=== PATIENT | male | born 1990 | race Caucasian/White ===

== ENCOUNTER → 2017-03-20 10:33 | Emergency (ER) | payer BC ==
[~2017-03-20 10:33] MED LIST: Aspirin Low Dose CHEW TAB* 81 MG PO ONE
[2017-03-20 11:02] LABS: Hematocrit 45 % (42-52); Hemoglobin 15.4 g/dl (14.0-18.0); Mean Corpuscular HGB Conc 34 g/dl (31-36); Mean Corpuscular Hemoglobin 31 pg (27-31); Mean Corpuscular Volume 91 fL (80-94); Mean Platelet Volume 8 um3 (7.4-10.4); Red Blood Count 4.92 10^6/ul (4.0-5.4); Red Cell Distribution Width 13 % (10.5-15); White Blood Count 10.4 10^3/ul (3.5-10.8)
--- NOTE | 2017-03-20 11:14 | RAD ---
HISTORY: Chest pain COMPARISONS: None VIEWS:1: Single frontal portable view of the chest at 11:05 AM FINDINGS: LINES AND TUBES: None. CARDIOMEDIASTINAL SILHOUETTE: The cardiomediastinal silhouette is normal for portable technique. PLEURA: The costophrenic angles are sharp. No pleural abnormalities are noted. LUNG PARENCHYMA: The lungs are clear. ABDOMEN: The upper abdomen is clear. There is no subphrenic gas. BONES AND SOFT TISSUES: No bone or soft tissue abnormalities are noted. IMPRESSION: NO ACTIVE CARDIOPULMONARY DISEASE.
[2017-03-20 11:42] LABS: Benzodiazepine Urine Screen None Detected (None Detect)
[2017-03-20 12:38] LABS: Albumin 4.4 g/dL (3.2-5.2); BUN/Creatinine Ratio 13.3 (8-20); Calcium 9.4 mg/dL (8.6-10.3); EGFR African American 131.2 (>60); Globulin 2.5 g/dL (2-4); Potassium 4.3 mmol/L (3.5-5.0); Total Bilirubin 0.8 mg/dL (0.2-1.0); Total Protein 6.9 g/dL (6.4-8.9)
[2017-03-20 12:39] LABS: Troponin I 0.01 ng/mL (<0.04)
[2017-03-20 15:39] VITALS: BP 122/73
--- NOTE | 2017-04-02 15:14 | ED ---
Julius Hill Benjamin, scribed for Kamar Nichole MD on 03/20/17 at 1108 . HPI Chest Pain - HPI Summary HPI Summary: 26yo male c/o sudden onset chest pain that started this morning around 9am. Pt describes feeling heaviness in his left anterior chest that lasted about an hour. Pt was just walking around his house at the time of onset. Pt reports having previous CP every once in a while but never this bad. Associated symptoms include SOB, lightheadedness, and pt also felt like passing out. Denies cough and has not been on a long trip recently. Negative FHx of CAD and DM. Pt is a smoker. Pt experienced a family recently but denies any anxiety or stress. - History of Current Complaint Chief Complaint: EDChestPainROMI Time Seen by Provider: 03/20/17 10:44 Hx Obtained From: Patient, Family/Test Engineering Intern - Onset/Duration: Still Present Time of Onset: 09:00 Timing: Constant, Lasting Hours - 1 hr Initial Severity: Moderate Current Severity: Mild Pain Intensity: 2 Pain Scale Used: 0-10 Numeric Chest Pain Location: Left Anterior Chest Pain Radiates: No Character: Heaviness Aggravating Factor(s): Nothing Alleviating Factor(s): Nothing Associated Signs and Symptoms: Positive: Chest Pain, Shortness of Breath, Syncope - near, Lightheadedness. Negative: Anxiety, Recent Stress, Cough, Productive Cough, Nonproductive Cough - Allergy/Home Medications Allergies/Adverse Reactions: Allergies Allergy/AdvReac Type Severity Reaction Status Date / Time No Known Allergies Allergy Verified 03/20/17 10:45 PMH/Surg Hx/FS Hx/Imm Hx Cardiovascular History: Denies: Hx Myocardial Infarction Infectious Disease History: No Infectious Disease History: Denies: Traveled Outside the [place] in Last 30 Days - Family History Known Family History: Negative: Cardiac Disease, Hypertension - Social History Occupation: Employed Full-time Lives: With Family Alcohol Use: None Substance Use Type: Reports: Marijuana Smoking Status (MU): Current Every Day Smoker Review of Systems Negative: Fever, Chills Negative: Erythema Negative: Sore Throat Positive: Chest Pain - L anterior Positive: Shortness Of Breath. Negative: Cough Negative: Abdominal Pain, Vomiting, Nausea Negative: dysuria, hematuria Negative: Edema Negative: Rash Neurological: Other - lightheadedness Positive: Syncope - near Psychological: Normal Negative: Anxious All Other Systems Reviewed And Are Negative: Yes Physical Exam Triage Information Reviewed: Yes Vital Signs On Initial Exam: Initial Vitals Temp Pulse Resp BP 97.6 F 67 20 123/77 03/20/17 10:34 03/20/17 10:34 03/20/17 10:34 03/20/17 10:34 Vital Signs Reviewed: Yes Appearance: Positive: Well-Appearing, Well-Nourished, Pain Distress - mild Skin: Positive: Warm, Skin Color Reflects Adequate Perfusion Head/Face: Positive: Normal Head/Face Inspection Eyes: Positive: Conjunctiva Clear ENT: Positive: Normal ENT inspection Neck: Positive: Supple, Nontender, Other: - (-) JVD, (-) Stridor, (-) Tracheal deviation Respiratory/Lung Sounds: Positive: Clear to Auscultation, Breath Sounds Present. Negative: Rales, Rhonchi, Wheezes Cardiovascular: Positive: RRR, Pulses are Symmetrical in both Upper and Lower Extremities. Negative: Murmur Abdomen Description: Positive: Nontender, Soft, Other: - negative - rebound. Negative: Distended, Guarding Musculoskeletal: Negative: Edema Left, Edema Right Neurological: Positive: Sensory/Motor Intact, Alert, Oriented to Person Place, Time Psychiatric: Positive: Affect/Mood Appropriate Diagnostics - Vital Signs Vital Signs Temp Pulse Resp BP Pulse Ox 03/20/17 10:41 98.7 F 66 16 145/83 96 03/20/17 10:34 97.6 F 67 20 123/77 - Laboratory Result Diagrams: 03/20/17 10:50 03/20/17 10:50 Lab Statement: Any lab studies that have been ordered have been reviewed, and results considered in the medical decision making process. - Radiology CXR Xray Interpretation: No Acute Changes Radiology Interpretation Completed By: Radiologist - EKG 1040. Cardiac Rate: NL - 67bpm EKG Rhythm: Sinus Rhythm EKG Interpretation: No STEMI, mild ST elevation in inferior leads 1358. Cardiac Rate: NL - 64bpm EKG Rhythm: Sinus Rhythm EKG Comparison: No Significant Change - unchanged from EKG taken at PCP's office at 11/27/16. Re-Evaluation - Re-Evaluation First Eval Re-Evaluation Time: 13:10 Change: Unchanged - still chest pain free. Second Eval Re-Evaluation Time: 15:02 Change: Unchanged - still chest pain free. Chest Pain Course/Dx - Course Course Of Treatment: Reviewed pts medication and allergy lists. - Diagnoses Provider Diagnoses: Chest pain Discharge - Discharge Plan Condition: Stable Disposition: HOME Patient Education Materials: Chest Pain (ED) Referrals: Session Albin ALVAREZ [Primary Care Provider] - Barrie Welsh MD [Medical Doctor] - 2 Days Additional Instructions: RETURN TO THE EMERGENCY DEPARTMENT FOR CHANGING OR WORSENING SYMPTOMS. The documentation as recorded by the Julius ramon Benjamin accurately reflects the service I personally performed and the decisions made by Dionisio holguin Jerry, MD.
== END | disposition home or self-care (01) ==
LOC: ED 10:33
DX: R07.9 Chest pain, unspecified (principal); R06.02 Shortness of breath; R55 Syncope and collapse; R42 Dizziness and giddiness; F17.210 Nicotine dependence, cigarettes, uncomplicated
CPT/HCPCS: 36415; 71010; 80053; 80307; 83605; 84484; 85025; 93005; 99282; A9270-GY

== ENCOUNTER 2017-09-08 16:08 | Emergency (ER) | payer BC ==
[2017-09-08] MEDS ORDERED: Ondansetron INJ* 2 MG/ML VIAL IV ONE (17:57)
[2017-09-08] MEDS ORDERED: Ketorolac INJ* 30 MG/ML 1 ML VIAL IV PUSH ONE (17:57)
[2017-09-08] MEDS: NS 0.9% 1000 ML* 2,000 ML IV ONE (18:11)
[2017-09-08 18:31] LABS: ABS Basophils 0 10^3/ul (0-0.2); ABS Eosinophils 0.1 10^3/ul (0-0.6); ABS Lymphocytes 0.5 10^3/ul (1.0-4.8); ABS Monocytes 0.7 10^3/ul (0-0.8); ABS Neutrophils 4.4 10^3/ul (1.5-7.7); ABS Nucleated RBC 0 10^3/ul; Eosinophil % 0.9 % (0-6); Hematocrit 41 % (42-52); Hemoglobin 14.1 g/dl (14.0-18.0); Lymphocyte % 8.6 % (25-47); Mean Corpuscular HGB Conc 35 g/dl (31-36); Mean Corpuscular Hemoglobin 31 pg (27-31); Mean Corpuscular Volume 89 fL (80-94); Mean Platelet Volume 7 um3 (7.4-10.4); Nucleated Red Blood Cells % 0; Platelet Count 229 10^3/ul (150-450); Red Cell Distribution Width 13 % (10.5-15); White Blood Count 5.7 10^3/ul (3.5-10.8)
--- NOTE | 2017-09-08 18:32 | ED ---
HPI Febrile Illness - HPI Summary HPI Summary: 27-year-old male presents with fever since yesterday. He denies body aches, headache, congestion, and sore throat. She denies any neck stiffness. He denies any photophobia. He has history of migraines. He admits to nausea and vomiting. He admits to generalized abdominal pain. He admits to a dry cough. Admits to occasional shortness of breath. He denies any chest pain. He admits to generalized body aches. He hasn't taken anything for his pain. He states he cannot keep anything down. He was last night. He has no medical conditions. - History of Current Complaint Chief Complaint: EDFluSymptoms Time Seen by Provider: 09/08/17 17:45 Pain Intensity: 5 - Allergy/Home Medications Allergies/Adverse Reactions: Allergies Allergy/AdvReac Type Severity Reaction Status Date / Time No Known Allergies Allergy Verified 03/20/17 10:45 PMH/Surg Hx/FS Hx/Imm Hx Endocrine/Hematology History: Denies: Hx Anticoagulant Therapy Cardiovascular History: Denies: Hx Myocardial Infarction Respiratory History: Denies: Hx Asthma Infectious Disease History: No Infectious Disease History: Denies: Traveled Outside the [place] in Last 30 Days - Family History Known Family History: Negative: Cardiac Disease, Hypertension - Social History Alcohol Use: None Substance Use Type: Reports: None Smoking Status (MU): Never Smoked Tobacco Review of Systems Positive: Fever, Chills, Fatigue Negative: Chest Pain Positive: Shortness Of Breath, Cough Positive: Abdominal Pain, Vomiting, Nausea. Negative: Diarrhea All Other Systems Reviewed And Are Negative: Yes Physical Exam Triage Information Reviewed: Yes Vital Signs On Initial Exam: Initial Vitals Temp Pulse Resp BP Pulse Ox 99.6 F 110 20 120/83 97 09/08/17 16:20 09/08/17 16:20 09/08/17 16:20 09/08/17 16:20 09/08/17 16:20 Vital Signs Reviewed: Yes Appearance: Positive: Ill-Appearing - non toxic Skin: Positive: Warm, Dry Head/Face: Positive: Normal Head/Face Inspection Eyes: Positive: Normal, EOMI, BONNIE, Conjunctiva Clear ENT: Positive: Normal ENT inspection, Pharyngeal erythema, TMs normal, Uvula midline. Negative: Tonsillar swelling, Tonsillar exudate, Trismus, Muffled voice Respiratory/Lung Sounds: Positive: Clear to Auscultation, Breath Sounds Present Cardiovascular: Positive: Normal, RRR Abdomen Description: Positive: Nontender, Soft Bowel Sounds: Positive: Present Musculoskeletal: Positive: Normal Neurological: Positive: Normal Psychiatric: Positive: Normal Diagnostics - Vital Signs Vital Signs Temp Pulse Resp BP Pulse Ox 09/08/17 18:00 128/88 09/08/17 17:54 94 96 09/08/17 17:52 100.2 F 09/08/17 17:51 117/56 09/08/17 16:20 99.6 F 110 20 120/83 97 - Laboratory Result Diagrams: 09/08/17 18:15 09/08/17 18:15 Lab Statement: Any lab studies that have been ordered have been reviewed, and results considered in the medical decision making process. Re-Evaluation - Re-Evaluation First Eval Re-Evaluation Time: 19:34 Change: Improved Comment: still has a headache, so will give benadryl to complete migraine cocktail Course/Dx - Course Course Of Treatment: 27-year-old male presents with fever since yesterday. He denies body aches, headache, congestion, and sore throat. She denies any neck stiffness. He denies any photophobia. He has history of migraines. He admits to nausea and vomiting. He admits to a dry cough. Admits to occasional shortness of breath. He denies any chest pain. He admits to generalized body aches. He hasn't taken anything for his pain. He states he cannot keep anything down. He was last night. He has no medical conditions. On exam appears normal. Pharynx erythema but no tonsillar swelling or exudate. Uvula midline. Lungs clear to auscultation. Abdomen soft nontender. will treat presumpatively as flu with tamiflu. will give zofran for nausea. patient understand and agrees with plan. - Febrile Illness Differential Diagnoses: Pneumonia, Viremia, Other: - influenza - Diagnoses Provider Diagnoses: Febrile illness Discharge - Discharge Plan Condition: Good Disposition: HOME Prescriptions: Ondansetron ODT TAB* [Zofran 4 MG Odt TAB*] 4 mg PO Q6H PRN #20 tab.odt PRN Reason: Nausea Oseltamivir CAP* [Tamiflu CAP*] 75 mg PO BID #9 cap Patient Education Materials: Influenza (ED) Referrals: Session Albin ALVAREZ [Primary Care Provider] - Additional Instructions: Take Tamiflu twice for 5 days first dose given in ED Take Tylenol and ibuprofen for muscle aches and fever every 6 hours Use Zofran every 6 hours for nausea as needed Saline rinse can be used multiple times a day for nasal congestion Use humidifier in room or place bowls of warm water around room for cough Try to drink fluids every hour and eat a small snack every 3 hours Return to ED if develop any new or worsening symptoms
[2017-09-08 18:45] LABS: EGFR Non-African American 91.7 (>60)
[2017-09-08] MEDS ORDERED: Oseltamivir CAP* 75 MG CAP PO ONE (19:19)
[2017-09-08] MEDS ORDERED: Acetaminophen TAB* 325 MG PO ONE (19:21)
[2017-09-08] MEDS ORDERED: diPHENhydraMINE IV* 50 MG/ML 1 ml VIAL (BENADRYL) IV ONE (19:22)
[2017-09-08 20:17] VITALS: BP 126/97
== END 2017-09-08 20:16 | disposition home or self-care (01) ==
LOC: ED 16:08
DX: R50.9 Fever, unspecified (principal); R06.02 Shortness of breath; R05 Cough; R10.9 Unspecified abdominal pain; R11.2 Nausea with vomiting, unspecified
CPT/HCPCS: 36415; 80053; 85025; 96374; 96375; 99283; A9270-GY; J1200; J1885; J2405